=== PATIENT | male | born 1950 | race Caucasian/White ===

== ENCOUNTER 2025-02-25 09:32 | Day surgery (SDC) | payer MEDICARE ==
[2025-02-19 12:20] VITALS: BMI 25.7
[2025-02-25] MEDS ORDERED: SUGAMMADEX SODIUM 200 MG/2 ML VIAL ONE (10:20)
[2025-02-25] MEDS ORDERED: Rocuronium Bromide 10 MG/ML (10ML VIAL) ONE (10:20)
[2025-02-25] MEDS ORDERED: Lidocaine 1% PF 5 ML VIAL ONE (10:20)
[2025-02-25] MEDS ORDERED: PROPOFOL 40 ML ONE (10:21)
[2025-02-25 10:55] LABS: Hematocrit 44.9 % (38.8-50.0); Hemoglobin 14.7 g/dL (13.5-17.5)
[2025-02-25 11:07] LABS: Anion Gap 13 mmol/L (10-20); BUN (Urea Nitrogen) 20 mg/dL (8.4-25.7); Calc. Creatinine Clearance 59 mL/min (70-130); Calcium 8.8 mg/dL (7.8-10.44); Carbon Dioxide 24 mmol/L (23-31); Chloride 111 mmol/L (98-107); Glucose 98 mg/dL (83-110); Potassium 4.6 mmol/L (3.5-5.1); Sodium 143 mmol/L (136-145)
[2025-02-25] MEDS ORDERED: Lidocaine 1% w/Epinephrine 1:200K 30 ML VIAL ONE (11:13)
[2025-02-25] MEDS ORDERED: CEFAZOLIN 2 GM VIAL ONE (11:28)
[2025-02-25] MEDS ORDERED: HYDROmorphone 0.5 MG/0.5 ML SYRINGE ONE ×2 (12:39→12:53)
[2025-02-25] MEDS ORDERED: Hydrocodone-Acetamin 15 ML UDCUP ONE (13:37)
== END 2025-02-25 14:10 | disposition home or self-care (01) ==
LOC: CSHSDC 09:32
PROVIDERS: ATTEND Otolaryngology Plastic Surgery within the Head & Neck
PROC: 0CB Mouth and Throat, Excision (ICD-10-PCS; principal; 2025-02-25)
DX: K11.6 Mucocele of salivary gland (principal); K11.20 Sialoadenitis, unspecified; K11.5 Sialolithiasis; I10 Essential (primary) hypertension; Z79.899 Other long term (current) drug therapy
CPT/HCPCS: 42440; 80048; 85014; 85018; 93005; J1100; J1171; J2704; J3010; 36415; 88305; 88311; 93010